=== PATIENT | male | born 1960 | race Caucasian/White ===

== ENCOUNTER 2016-10-24 14:06 | Emergency (ER) | payer OTHER ==
[~2016-10-24] VITALS: Ht 180.3 cm; Wt 79.5 kg
[2016-10-24 14:10] VITALS: BP 143/89; PULSE 90; RESP 12; O2SAT 98
--- NOTE | 2016-10-24 15:09 | ED.REPORT ---
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 Was wearing contact and kept contacts in till that evening. need a tdap. left eye is crucnchy in the morning. wears contacts, in at the moment, had contacts on with stool exposure. did not use cantacts for about a week., was wearing glasses started wearing a new pair of contacts about 3 weeks discharge all day long. ago. problem has been ongoing for 3 weeks. primary care is no one 03/02 pain Nursing Notes Chief Complaint: General Complaint Nursing Notes Reviewed: Yes Allergies: Coded Allergies: No Known Allergies (Unverified , 10/24/16) General Time Seen by MD: 15:08 Chief Complaint Left eye affected Hx Obtained From: Patient Sudden in Onset?: No Location: : Eye left Associated with: Reports: Crusting in AM, Photophobia Risk-Eye Problem Eye Injury Risk Stratification Exposure, chemical RF Statements: Risk factors reviewed Past Medical History Past Medical History Denies: Asthma, Diabetes mellitus Past Surgical History Reports: Appendectomy (1986) Smoking History Former Smoker (quit 5 years ago) Social History Alcohol Use: "Social" Drug Use: Denies drug use Occupation single, lives by self, 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 Ambulatory Status Independent Review of Systems Basic Review of Systems Respiratory: No shortness of breath, No cough, No wheeze Cardiovascular: No chest pain, No dyspnea on exertion, No orthopnea, No parox noct dyspnea, No palpitations GI: No abdominal pain, No anorexia, No nausea, No vomiting : No dysuria, No frequency Musculoskeletal: No extremity swelling, No extremity pain, Full range of motion , Joints NL Hematologic: No bleeding, No bruising Endocrine: No cold intolerance, No heat intolerance, No weight gain, No weight loss Allergy / Immune: No allergy Psychiatric: Normal thought content Physical Exam Initial Vital Signs Vital Signs (First) Date Time Temp Pulse Resp B/P Pulse Ox O2 Delivery O2 Flow Rate FiO2 10/24/16 14:10 36.4 90 12 143/89 98 10/24/16 16:52 Room Air Initial VS: Reviewed, Vital signs normal General / Const: Well-developed, Well-nourished ENT: Mucous membranes moist, Conjunctiva normal, No scleral icterus Neck: Supple, Non-tender, Full range of motion Respiratory: Breath sounds normal, Clear to auscultation, No respiratory distress Cardiovascular: Regular rate & rhythm, Heart sounds normal, Intact distal pulses Abdomen / GI: Soft, Non-tender, No guarding, No rebound, No distention Back: No CVA tenderness Lymphatic: No lymphadenopathy Extremities: Vascular intact, Neuro intact, No swelling, No tenderness Skin: Warm, Dry, No cyanosis Neurologic: Alert, Oriented, Nonfocal Psychiatric: Mood/affect normal, Behavior normal, Normal thought content left eye with cilliary flush. no flourscien up take. pressure is at 17. visual acuity right 20/80 left is 20/25 General/Constitutional: Awake, Alert, No acute distress, Well appearing, Well developed, Well hydrated ENT: Atraumatic, Airway patent, Mucous membranes moist, Pharynx NL Respiratory / Chest: Atraumatic, Breath sounds NL, Breath sounds = bilat Procedures Procedure Notes: slit lamp exam does not show any deffect in the cornea. It does show 5 to 6 small opacities on cornea. Re-Eval/Medical Decision Med Decision/Clinical Course discussed with Dr. Ram. will call patient tomorrow to set up appointment Discharge & Departure Primary Impression: Ciliary flush Additional Impression: Eye infection Disposition: Home Patient Instructions: Chemical Eye Brar (DC) Additional Instructions: The episode happened on 10/02/2016. You kept the contacts in after the exposure. Your visual eye exam is fine. Your pressure is at 17 which is normal. Visual exam indicates cillary flush around the eye. There was no flourscein uptake. When using the slit lamp the were5 or 6 scattered opacities (very small ) on the cornea. I think you had a chemical burn to your eye from the stool. There was no antibiotic use at the time and the eye healed. But using the contacts again flared it up. DO NOT WEAR [place] in that eye till instructed to by Dr. Stone. He will call you tomorrow and arrange a time for you to meet him at his office. His office address is [address] [phone] Use vigamox 1 drop in the left eye while awake. Referrals: [facility] EDSupervising Provider for APC: Iris Ocampo MD copies to: [facility] Belem Alexander Oct 24, 2016 15:08
[2016-10-24] MEDS ORDERED: Sodium Chloride 44 mL Nasal Drops NASAL ONE (15:25)
[2016-10-24] MEDS ORDERED: Tetracaine 0.5% 4 mL Ophthalmic Solution LEFT_EYE ONE (15:25)
[2016-10-24] MEDS ORDERED: Fluorescein 0.6 mg Ophthalmic Strip LEFT_EYE ONE (15:25)
[2016-10-24] MEDS ORDERED: TdaP Vaccine 0.5 mL Inj IM ONE (16:20)
[2016-10-24] MEDS: Moxifloxacin 0.5% 3 mL Ophthalmic Solution LEFT_EYE ONE ×2 (16:30→16:46)
[2016-10-24 16:52] VITALS: BP 132/81; PULSE 78; RESP 16; O2SAT 94
== END 2016-10-24 16:56 | disposition home or self-care (01) ==
LOC: SED 14:06
DX: H44.002 Unspecified purulent endophthalmitis, left eye (principal); X58.XXXA Exposure to other specified factors, initial encounter; Y93.89 Activity, other specified; Y92.69 Other specified industrial and construction area as the place of occurrence of the external cause; Y99.0 Civilian activity done for income or pay; Z23 Encounter for immunization; Z87.891 Personal history of nicotine dependence